=== PATIENT | female | born 1990 | race Caucasian/White ===

== ENCOUNTER 2018-06-14 13:56 | Emergency (ER) | payer OTHER ==
[~2018-06-14] VITALS: Ht 154.9 cm; Wt 45.4 kg
[2018-06-14 14:12] VITALS: Ht 154.9 cm; Wt 45.4 kg
[2018-06-14 14:50] VITALS: BP 121/84
== END 2018-06-14 14:50 | disposition home or self-care (01) ==
LOC: ED 13:56
DX: G44.209 Tension-type headache, unspecified, not intractable (principal); R11.0 Nausea